=== PATIENT | female | born 1990 | race Native Hawaiian/Other Pacific Islander ===

== ENCOUNTER 2019-09-05 08:41 | Emergency (ER) | payer BC ==
[~2019-09-05] VITALS: Ht 165.1 cm; Wt 86.2 kg
[2019-09-05 08:50] VITALS: BP 137/88; TEMP 98.6
== END 2019-09-05 09:30 | disposition home or self-care (01) ==
LOC: ED 08:41
DX: M54.2 Cervicalgia (principal); R51 Headache; Z98.890 Other specified postprocedural states
CPT/HCPCS: 99281

== ENCOUNTER 2019-10-08 00:14 | Emergency (ER) | payer BC ==
[~2019-10-08] VITALS: Ht 165.1 cm; Wt 88.5 kg
[2019-10-08 01:11] LABS: PLATELET COUNT 235 K/uL (152-353)
[2019-10-08 01:15] LABS: POTASSIUM 3.8 mmol/L (3.6-5.2); SODIUM 140 mmol/L (136-145)
[2019-10-08 04:20] VITALS: BP 127/70; TEMP 97.3
== END 2019-10-08 04:20 | disposition home or self-care (01) ==
LOC: ED 00:14
PROVIDERS: Emergency Medicine
DX: K21.9 Gastro-esophageal reflux disease without esophagitis (principal); R07.89 Other chest pain
CPT/HCPCS: 36415; 80053; 81025; 82150; 82550; 82553; 83690; 84484; 85027; 93005; 99283; Q9963